=== PATIENT | female | born 1950 | race Two or more races ===

== ENCOUNTER 2020-01-16 11:46 | Emergency (ER) | payer OTHER ==
[~2020-01-16] VITALS: Ht 167.6 cm; Wt 63.5 kg
[2020-01-16] MEDS ORDERED: CRESTOR20 MG (12:05)
[2020-01-16] MEDS ORDERED: VALSARTAN80 MG (12:05)
[2020-01-16] MEDS ORDERED: MEDROLPACK PO (17:24)
[2020-01-16] MEDS ORDERED: PEPCID AC20 MG PO (17:24)
[2020-01-16] MEDS ORDERED: MUCINEX1200 MG PO (17:24)
[2020-01-16] MEDS ORDERED: VISTARIL25 MG PO (17:24)
== END 2020-01-16 17:38 | disposition home or self-care (01) ==
LOC: ER 11:46
DX: T78.3XXA Angioneurotic edema, initial encounter (principal)

== ENCOUNTER 2020-01-19 15:05 | Emergency (ER) | payer OTHER ==
[~2020-01-19] VITALS: Ht 167.6 cm; Wt 77.1 kg
[~2020-01-19 15:05] MED LIST: CRESTOR20 MG; MEDROLPACK PO; MUCINEX1200 MG PO; PEPCID AC20 MG PO; VALSARTAN80 MG; VISTARIL25 MG PO
== END 2020-01-19 23:29 | disposition home or self-care (01) ==
LOC: ER 15:05
DX: H66.92 Otitis media, unspecified, left ear (principal); K21.9 Gastro-esophageal reflux disease without esophagitis; R07.0 Pain in throat

== ENCOUNTER → 2020-01-22 | Outpatient (CLI) | payer OTHER | END | disposition home or self-care (01) | LOC: OFIC 805 12:00 | DX: K21.9 Gastro-esophageal reflux disease without esophagitis (principal); R07.0 Pain in throat; J34.3 Hypertrophy of nasal turbinates; J30.89 Other allergic rhinitis; H61.23 Impacted cerumen, bilateral ==

== ENCOUNTER 2020-01-30 11:23 | Emergency (ER) | payer OTHER ==
[~2020-01-30] VITALS: Ht 167.6 cm; Wt 77.1 kg
[2020-01-30] MEDS ORDERED: CARAFATE1 GM PO (16:16)
[2020-01-30] MEDS ORDERED: VALSARTAN40 MG PO (16:16)
== END 2020-01-30 16:31 | disposition home or self-care (01) ==
LOC: ER 11:23
DX: K21.9 Gastro-esophageal reflux disease without esophagitis (principal); R55 Syncope and collapse; Z03.818 Encounter for observation for suspected exposure to other biological agents ruled out; R10.12 Left upper quadrant pain; R06.02 Shortness of breath

== ENCOUNTER 2020-02-20 09:40 | Outpatient (CLI) | payer OTHER ==
[~2020-02-20 09:40] MED LIST changes: +CARAFATE1 GM PO; +VALSARTAN40 MG PO
== END 2020-02-20 10:00 | disposition home or self-care (01) ==
LOC: OFIC 805 09:40
PROVIDERS: ATTEND Otolaryngology
DX: K21.9 Gastro-esophageal reflux disease without esophagitis (principal); R07.0 Pain in throat; J30.89 Other allergic rhinitis; J34.3 Hypertrophy of nasal turbinates

== ENCOUNTER 2020-04-11 05:52 | Emergency (ER) | payer OTHER ==
[~2020-04-11] VITALS: Ht 167.6 cm; Wt 74.8 kg
== END 2020-04-11 09:09 | disposition home or self-care (01) ==
LOC: ER 05:52
DX: K21.9 Gastro-esophageal reflux disease without esophagitis (principal); K29.70 Gastritis, unspecified, without bleeding; I10 Essential (primary) hypertension

== ENCOUNTER 2020-06-27 07:59 | Outpatient (CLI) | payer OTHER | END 2020-06-27 13:51 | disposition home or self-care (01) | LOC: OFIC 805 07:59 | PROVIDERS: ATTEND Otolaryngology | DX: E04.1 Nontoxic single thyroid nodule (principal) ==

== ENCOUNTER 2020-07-21 10:38 | Emergency (ER) | payer OTHER ==
[~2020-07-21] VITALS: Ht 167.6 cm; Wt 77.1 kg
[2020-07-21] MEDS ORDERED: NORFLEX100MG PO (13:31)
[2020-07-21] MEDS ORDERED: KETO10TA2 PO (13:31)
== END 2020-07-21 13:40 | disposition home or self-care (01) ==
LOC: ER 10:38
DX: M54.5 Low back pain (principal); M54.6 Pain in thoracic spine; Z03.818 Encounter for observation for suspected exposure to other biological agents ruled out

== ENCOUNTER 2020-10-13 09:22 | Outpatient (CLI) | payer OTHER ==
[~2020-10-13 09:22] MED LIST changes: +KETO10TA2 PO; +NORFLEX100MG PO
== END 2020-10-13 09:33 | disposition home or self-care (01) ==
LOC: TOM 09:22
PROVIDERS: ATTEND Internal Medicine Gastroenterology
DX: R10.12 Left upper quadrant pain (principal)

== ENCOUNTER 2021-06-22 01:38 | Emergency (ER) | payer OTHER ==
[~2021-06-22] VITALS: Ht 160 cm; Wt 83.9 kg
[2021-06-22] MEDS ORDERED: LOSARTAN POTASS25 MG (01:52)
[2021-06-22] MEDS ORDERED: CARAFATE1 GM PO (05:37)
[2021-06-22] MEDS ORDERED: PEPCID AC20 MG PO (05:37)
== END 2021-06-22 05:47 | disposition home or self-care (01) ==
LOC: ER 01:38
DX: K21.9 Gastro-esophageal reflux disease without esophagitis (principal); J69.0 Pneumonitis due to inhalation of food and vomit; Z11.52 Encounter for screening for COVID-19; I49.8 Other specified cardiac arrhythmias

== ENCOUNTER 2021-10-19 17:50 | Emergency (ER) | payer OTHER ==
[~2021-10-19] VITALS: Ht 160 cm; Wt 79.8 kg
[~2021-10-19 17:50] MED LIST changes: +LOSARTAN POTASS25 MG
[2021-10-19] MEDS ORDERED: NORFLEX100MG PO (19:16)
== END 2021-10-19 20:40 | disposition home or self-care (01) ==
LOC: ER 17:50
DX: M54.9 Dorsalgia, unspecified (principal); M79.10 Myalgia, unspecified site; I10 Essential (primary) hypertension

== ENCOUNTER 2021-11-04 16:12 | Emergency (ER) | payer OTHER ==
[~2021-11-04] VITALS: Ht 175.3 cm; Wt 59.0 kg
[2021-11-04] MEDS ORDERED: CRESTOR20 MG PO (16:31)
[2021-11-04] MEDS ORDERED: DICLOFENAC SODI75 MG PO (19:49)
== END 2021-11-04 19:52 | disposition home or self-care (01) ==
LOC: ER 16:12
DX: R10.84 Generalized abdominal pain (principal); Z88.8 Allergy status to other drugs, medicaments and biological substances

== ENCOUNTER 2021-11-14 09:33 | Emergency (ER) | payer OTHER ==
[~2021-11-14] VITALS: Ht 165.1 cm; Wt 77.1 kg
[~2021-11-14 09:33] MED LIST changes: +CRESTOR20 MG PO; +DICLOFENAC SODI75 MG PO
[2021-11-14] MEDS ORDERED: PANTOPRAZOLE SO40 MG (09:56)
== END 2021-11-14 12:53 | disposition home or self-care (01) ==
LOC: ER 09:33
DX: K29.00 Acute gastritis without bleeding (principal); N23 Unspecified renal colic; N20.0 Calculus of kidney

== ENCOUNTER 2023-05-01 10:14 | Emergency (ER) | payer OTHER ==
[~2023-05-01] VITALS: Ht 167.6 cm; Wt 79.8 kg
[~2023-05-01 10:14] MED LIST changes: +PANTOPRAZOLE SO40 MG
== END 2023-05-01 14:20 | disposition home or self-care (01) ==
LOC: ER 10:14
PROVIDERS: Emergency Medicine
DX: R10.9 Unspecified abdominal pain (principal); Z87.442 Personal history of urinary calculi; Z91.041 Radiographic dye allergy status; N20.1 Calculus of ureter; N20.0 Calculus of kidney
CPT/HCPCS: 36415; 74176; 96365; 96366; 99284; J7030

== ENCOUNTER 2024-06-09 06:42 | Emergency (ER) | payer OTHER ==
[~2024-06-09] VITALS: Ht 165.1 cm; Wt 81.6 kg
[2024-06-09] MEDS ORDERED: KETOROLAC TROMETHAMINE 30 MG VIAL IV STA (07:14)
[2024-06-09] MEDS ORDERED: MEPERIDINE HCL/PF 50 MG/ML VIAL IM STA (07:14)
[2024-06-09] MEDS ORDERED: HYOSCYAMINE SULFATE 0.125 MG TAB.SUBL SL STA (07:14)
[2024-06-09] MEDS ORDERED: PROMETHAZINE HCL 50 MG/ML AMPUL IM STA (07:14)
[2024-06-09 08:16] LABS: URINE APPEARANCE Turbid; URINE BILIRRUBIN Negative (NEGATIVE); URINE BLOOD Large; URINE COLOR Orange; URINE GLUCOSE Negative (NEGATIVE); URINE KETONE Trace (NEGATIVE); URINE LEUKOCYTE Small; URINE NITRATE Negative; URINE UROBILINOGEN 0.2 E.U./dl
[2024-06-09 08:28] LABS: URINE BACTERIA 51.6 uL (0.0-1933); URINE EPITHELIAL CELLS 40.3 uL (0.0-38.8); URINE RBC 2612.6 uL (0.0-20.8); URINE WBC 45.4 uL (0.0-23.2)
[2024-06-09 08:32] LABS: HEMATOCRIT 39.8 % (36.0-45.00); HEMOGLOBIN 13.5 g/dL (12.0-15.00); MEAN CELL VOLUME 90.3 fL (80.00-100.00); MEAN CORPUSCULAR HEMOGLOBIN 30.7 pg (27.00-32.0); PLATELET COUNT 209 K/uL (150-450); RED BLOOD COUNT 4.41 M/uL (4.00-6.00)
[2024-06-09 08:56] LABS: CALCIUM 9.3 mg/dL (8.5-10.1); CREATININE SERUM 1.24 mg/dL (0.55-1.02); GFR 42.28; POTASSIUM 4.9 mEq/L (3.5-5.1)
[2024-06-09 10:03] LABS: URINE PROTEIN 100 (NEGATIVE)
[2024-06-09] MEDS ORDERED: TAMS0.4C PO (11:40)
[2024-06-09] MEDS ORDERED: KETO10TA2 PO (11:40)
[2024-06-09] MEDS ORDERED: PEPCID AC20 MG PO (11:40)
[2024-06-09] MEDS ORDERED: BACTRIM DS TAB1 EACH PO (11:40)
[2024-06-09] MEDS ORDERED: ZOFRAN8 MG PO (11:40)
== END 2024-06-09 11:49 | disposition home or self-care (01) ==
LOC: ER 06:43
DX: N20.1 Calculus of ureter (principal); R10.9 Unspecified abdominal pain; Z91.013 Allergy to seafood; Z91.041 Radiographic dye allergy status
CPT/HCPCS: 36415; 74176; 96365; 96372; 99284; J1885; J2550